=== PATIENT | male | born 1985 | race African-American/Black ===

== ENCOUNTER 2016-06-23 11:50 | Emergency (ER) | payer OTHER ==
[~2016-06-23] VITALS: Ht 167.6 cm; Wt 78.5 kg
--- NOTE | 2016-06-23 12:59 | Emergency Room Report ---
History of Present Illness General Chief Complaint: Puncture Wound Source: Patient Present Illness HPI The patient is a 31-year-old male presenting with right foot pain after he states he stepped onto a metal spike 2 days prior. The patient states that he was climbing a gate when he stepped on the top spike which penetrated the shoe into his foot. Pain is described as a 10 out of 10 dull ache it is worse with walking. Pain does not radiate. Patient denies any numbness or tingling. Patient denies prior injury to this foot. Patient has tried Motrin at home which does not help. Patient unsure of last tetanus shot Allergies: Coded Allergies: No Known Allergies (Unverified , 06/23/16) Patient History Past Medical History: see triage record Pertinent Family History: none Reviewed Nursing Documentation: PMH: Agreed, PSxH: Agreed Nursing Documentation-PMH Past Medical History: No History, Except For Hx Hypertension: Yes Hx Asthma: Yes Review of Systems All Other Systems: negative except mentioned in HPI Physical Exam Vital Signs Date Time Temp Pulse Resp B/P Pulse Ox O2 Delivery O2 Flow Rate FiO2 06/23/16 12:02 98.2 83 18 122/82 98 Room Air Sp02 EP Interpretation: reviewed, normal General Appearance: no apparent distress, alert, GCS 15, non-toxic Head: normocephalic, atraumatic Eyes: bilateral eye PERRL, bilateral eye normal inspection Musculoskeletal: back normal, gait/station normal, normal range of motion, no calf tenderness, tender - TTP over mid plantar surface where puncture wound is of R mid plantar surface Neurologic: alert, oriented x3, responsive, motor strength/tone normal, sensory intact, speech normal Psychiatric: judgement/insight normal, memory normal, mood/affect normal, no suicidal/homicidal ideation Skin: no rash, normal turgor, laceration - <1cm puncture wound of R mid plantar surface Lymphatic: no adenopathy Medical Decision Making PA Attestation Dr. Sams is my supervising physician. Patient management was discussed with my supervising physician Diagnostic Impression: Primary Impression: Puncture wound ER Course The patient is a 31-year-old male presenting with right foot pain after he states he stepped onto a metal spike Ddx considered include but not limited to sprain/strain, fracture, contusion, wound infection, laceration PE: vitals WNL. NAD TTP over mid plantar surface where puncture wound is of R mid plantar surface Wound is less than 1 cm in diameter The patient is given a tetanus shot and tramadol for pain The wound is irrigated with Betadine and normal saline. The patient is discharged home with a prescription for pain medications and antibiotics. Patient continue to keep the wound clean and dry. ER precautions are given Last Vital Signs Date Time Temp Pulse Resp B/P Pulse Ox O2 Delivery O2 Flow Rate FiO2 06/23/16 12:02 98.2 83 18 122/82 98 Room Air Status: improved Disposition: HOME, SELF-CARE Condition: Improved Scripts Ibuprofen* (MOTRIN*) 600 Mg Tablet 600 MG ORAL Q8H Y for For Pain, #30 TAB 0 Refills Prov: JANIS GILL P.A. 06/23/16 Tramadol Hcl* (ULTRAM*) 50 Mg Tablet 50 MG ORAL Q6H Y for For Pain, #10 TAB 0 Refills Prov: JANIS GILL P.A. 06/23/16 Ciprofloxacin Hcl* (CIPROFLOXACIN HCL*) 500 Mg Tablet 500 MG ORAL EVERY 12 HOURS, #20 TAB 0 Refills Prov: JANIS GILL P.A. 06/23/16 Referrals: [facility],REFERRING (PCP) JANIS GILL Jun 23, 2016 12:59
[2016-06-23] MEDS ORDERED: traMADol 50mg tab ORAL ONE (13:00)
[2016-06-23] MEDS ORDERED: TdaP Vaccine 0.5ml Syr IM ONE (13:00)
[2016-06-23] MEDS ORDERED: IBUPROFEN600 MG ORAL (13:11)
[2016-06-23] MEDS ORDERED: CIPROFLOXACIN500 M2 ORAL (13:11)
[2016-06-23] MEDS ORDERED: TRAMADOL HCL50 MG ORAL (13:11)
[2016-06-23 14:02] VITALS: BP 149/95
== END 2016-06-23 14:04 | disposition home or self-care (01) ==
LOC: EMR 12:50
DX: S91.331A Puncture wound without foreign body, right foot, initial encounter (principal); W22.8XXA Striking against or struck by other objects, initial encounter; Y93.39 Activity, other involving climbing, rappelling and jumping off; Y92.9 Unspecified place or not applicable; I10 Essential (primary) hypertension; J45.909 Unspecified asthma, uncomplicated; Z23 Encounter for immunization
CPT/HCPCS: 90471; 90715; 99284

== ENCOUNTER 2016-06-27 13:01 | Emergency (ER) | payer OTHER ==
[~2016-06-27] VITALS: Ht 167.6 cm; Wt 72.6 kg
[~2016-06-27 13:01] MED LIST: CIPROFLOXACIN500 M2 ORAL; IBUPROFEN600 MG ORAL; TRAMADOL HCL50 MG ORAL
[2016-06-27] MEDS ORDERED: TRAMADOL HCL50 MG ORAL (13:39)
--- NOTE | 2016-06-27 13:39 | Emergency Room Report ---
History of Present Illness General Chief Complaint: To Be Triaged Source: Patient Present Illness HPI Patient is a 31-year-old male who presented after having a recent puncture wound to his right foot. The patient was recently seen and evaluated started on antibiotics. Patient was here for were rechecked. Patient reported having continued pain. He had not been vomiting. He denied any fever. Patient stated that the foot had not become more swollen. He denied any discharge from the wound. Allergies: Coded Allergies: No Known Allergies (Unverified , 06/23/16) Patient History Reviewed Nursing Documentation: PMH: Agreed, PSxH: Agreed Nursing Documentation-PMH Hx Hypertension: Yes Hx Asthma: Yes Review of Systems All Other Systems: negative except mentioned in HPI Physical Exam General Appearance: well appearing, no apparent distress, alert, GCS 15 Head: normocephalic, atraumatic ENT: hearing grossly normal, normal voice Neck: full range of motion, supple Respiratory: no respiratory distress, speaking full sentences Musculoskeletal: normal inspection, no calf tenderness, other - healing wound, no infection Neurologic: normal gait Psychiatric: mood/affect normal Skin: no rash Medical Decision Making Diagnostic Impression: Primary Impression: Visit for wound check ER Course Patient presented for wound check.Patient presented for wound check. Differential diagnosis included was not limited to infected wound, nonhealed wound, neuroma, healed wound. Patient's benign exam and does not appear to require any further imaging or laboratory testing at this time. Patient was given prescription for ibuprofen. The patient is advised to follow up with final canoe inspector for recheck in 1 week. Patient is advised to return if any worsening condition or if any changes in status that are concerning. Status: improved Disposition: HOME, SELF-CARE Condition: Stable Leandro Sams Jun 27, 2016 13:39
[2016-06-27] MEDS ORDERED: IBUPROFEN600 MG ORAL (13:40)
[2016-06-27 13:55] VITALS: BP 123/82
== END 2016-06-27 14:00 | disposition home or self-care (01) ==
LOC: EMR 13:39
DX: S91.331D Puncture wound without foreign body, right foot, subsequent encounter (principal); I10 Essential (primary) hypertension; J45.909 Unspecified asthma, uncomplicated; X58.XXXD Exposure to other specified factors, subsequent encounter
CPT/HCPCS: 99281

== ENCOUNTER 2019-06-04 17:32 | Emergency (ER) | payer OTHER ==
[~2019-06-04] VITALS: Ht 170.2 cm; Wt 72.6 kg
--- NOTE | 2019-06-04 18:30 | NUR ---
ED Nurse Note: Patient presents to the ED with flu like symptoms x 3 days. Temp 98.5 F in the ER. Pt also reports a painful cough.
[2019-06-04] MEDS: Albuterol/Ipratropium 3ml neb HHN SCH (18:57)
[2019-06-04 19:02] VITALS: BP 119/80
--- NOTE | 2019-06-04 19:02 | NUR ---
ED Nurse Note: RT at bedside for breathing tx.
--- NOTE | 2019-06-04 19:13 | Emergency Room Report ---
History of Present Illness General Chief Complaint: Flu Like Symptoms Source: Patient, Medical Record Present Illness HPI 34-year-old male with history of heavy tobacco smoke here with complaining of 3 days of pain and posttussive chest pain. Patient denies any phlegm production. Complains of minimal wheezing. Has not taken medication for symptom relief. Denies fever and chills, sore throat, abdominal pain, nausea vomiting, recent travel. Patient reports that he has not come in contact with anybody recently traveling, and does not work with high risk patient population. Denies any drug use and alcohol intake. Vital signs are within normal limits. Patient also complains of generalized body aches x3 days. Patient barely responds to my questions as he says that he feels fatigued and his answers for him. Allergies: Coded Allergies: No Known Allergies (Unverified , 06/23/16) Patient History Past Medical History: see triage record Past Surgical History: none Pertinent Family History: none Social History: Reports: smoking - Heavy tobacco smoker on daily basis Immunizations: UTD Reviewed Nursing Documentation: PMH: Agreed; PSxH: Agreed Nursing Documentation-PMH Hx Hypertension: Yes Hx Asthma: Yes Review of Systems All Other Systems: negative except mentioned in HPI Physical Exam Vital Signs Date Time Temp Pulse Resp B/P (MAP) Pulse Ox O2 Delivery O2 Flow Rate FiO2 06/04/19 18:22 98.4 101 18 119/80 (93) 95 Room Air Sp02 EP Interpretation: reviewed, normal General Appearance: no apparent distress, alert, GCS 15, non-toxic Head: normocephalic, atraumatic Eyes: bilateral eye normal inspection, bilateral eye PERRL ENT: hearing grossly normal, normal pharynx, no angioedema, normal voice Neck: full range of motion, supple, thyroid normal, no meningismus, no bony tend, supple/symm/no masses Respiratory: chest non-tender, no rhonchi, no respiratory distress, no retraction, no accessory muscle use, speaking full sentences, wheezing - Diffuse wheezing noted Cardiovascular #1: regular rate, rhythm, no edema, no murmur Cardiovascular #2: 2+ carotid (R), 2+ carotid (L), 2+ radial (R), 2+ radial (L) Gastrointestinal: normal bowel sounds, non tender, soft, non-distended, no guarding, no rebound Rectal: deferred Genitourinary: no CVA tenderness Musculoskeletal: back normal, no calf tenderness Neurologic: alert, motor strength/tone normal, oriented x3, sensory intact, responsive, speech normal Psychiatric: judgement/insight normal, memory normal, mood/affect normal, no suicidal/homicidal ideation Skin: no rash, palpation normal, normal color, warm/dry Lymphatic: no adenopathy Medical Decision Making PA Attestation Diagnosis and treatment plans were reviewed and discussed with my supervising physician Dr. Norton Diagnostic Impression: Primary Impression: Pneumonitis ER Course 34-year-old male with history of heavy tobacco smoke here with complaining of 3 days of pain and posttussive chest pain. Patient denies any phlegm production. Complains of minimal wheezing. Has not taken medication for symptom relief. Denies fever and chills, sore throat, abdominal pain, nausea vomiting, recent travel. Patient reports that he has not come in contact with anybody recently traveling, and does not work with high risk patient population. Denies any drug use and alcohol intake. Vital signs are within normal limits. Patient also complains of generalized body aches x3 days. Patient barely responds to my questions as he says that he feels fatigued and his answers for him. Ddx considered but are not limited to: bronchitis, PNA, URI viral, bacterial bronchitis, pneumonitis Vital signs: are WNL, pt. is afebrile H&PE are most consistent with: Pneumonitis ORDERS: Chest x-ray, albuterol inhaler, azithromycin, Phenergan with codeine cough, prednisone ED INTERVENTIONS: Prednisone, 3 treatments of albuterol ipratropium breathing treatment DISCHARGE: At this time pt. is stable for d/c to home. Will provide printed patient care instructions, and any necessary prescriptions. Care plan and follow up instructions have been discussed with the patient prior to discharge. Advised patient to return to emergency room worsening symptoms. Patient is not a high risk raises concern. However patient answers no to all the questions in regards to whether he has been traveling or been in contact with patients who have been traveling or working with a high risk population areas. Follow-up primary care provider, increase oral hydration Chest X-Ray Diagnostic Results Chest X-Ray Diagnostic Results : Chest X-Ray Ordered: Yes # of Views/Limited/Complete: 1 View Indication: Shortness of Breath EP Interpretation: Yes PA Xray: Interpretation reviewed, by supervising MD, and agrees with findings. Interpretation: no consolidation, no effusion, no pneumothorax, no acute cardiopulmonary disease Impression: No acute disease Electronically Signed by: Matt Chew PA-C Last Vital Signs Date Time Temp Pulse Resp B/P (MAP) Pulse Ox O2 Delivery O2 Flow Rate FiO2 06/04/19 19:03 104 18 94 06/04/19 18:22 98.4 119/80 (93) Room Air Status: improved Disposition: HOME, SELF-CARE Condition: Stable Scripts Prednisone* (PREDNISONE*) 20 Mg Tablet 40 MG ORAL DAILY for 5 Days, #10 TAB Prov: Matt Holguin 06/04/19 Albuterol Sulfate (VENTOLIN HFA) 18 Gm Hfa.aer.ad 2 PUFFS INH EVERY 6 HOURS, #18 GM 0 Refills Prov: Matt Holguin 06/04/19 Codeine/Promethazine Hcl* (PROMETHAZINE-CODEINE SYRUP*) 118 Ml Syrup 5 ML ORAL Q6H PRN for For Cough for 120 Days, ML 0 Refills Prov: Matt Holguin 06/04/19 Azithromycin* (ZITHROMAX*) 250 Mg Tablet 250 MG ORAL DAILY, #6 TAB 0 Refills Take two tables once daily for 1 day, then one tablet once daily for 4 days. Prov: Matt Holguin 06/04/19 Referrals: [facility],REFERR[facility] (PCP) Patient Instructions: Pneumonitis Additional Instructions: Avoid smoking, take medication as directed, follow-up with your primary care provider, if worsening symptoms return to the emergency room Matt Holguin Jun 04, 2019 19:13
[2019-06-04] MEDS ORDERED: ZITHROMAX250 MG ORAL (19:20)
[2019-06-04] MEDS ORDERED: PROMETHAZINE-C118 M1 ORAL (19:20)
[2019-06-04] MEDS ORDERED: PREDNISONE20 MG ORAL (19:20)
[2019-06-04] MEDS ORDERED: VENTOLIN HFA18 GM INH (19:20)
--- NOTE | 2019-06-04 19:40 | Diagnostic Imaging Report ---
EXAM: XR Chest, 1 View CLINICAL HISTORY: COUGH TECHNIQUE: Frontal view of the chest. COMPARISON: No relevant prior studies available. FINDINGS: Lungs: Unremarkable. No consolidation. Pleural space: Unremarkable. No pneumothorax. Heart: Unremarkable. No cardiomegaly. Mediastinum: Unremarkable. Bones/joints: Unremarkable. IMPRESSION: Normal chest x-ray.
[2019-06-04 19:47] VITALS: BP 121/78
--- NOTE | 2019-06-04 19:47 | NUR ---
ED Nurse Note: Pt cleared by ERMD for discharge. DC instructions/prescription was given and explained to pt and verbalized understanding of teachings. All medical deviecs such as ID band removed. Pt is AAO x4, ambulatory and left with all personal belongings. Accompanied by family member.
== END 2019-06-04 19:47 | disposition home or self-care (01) ==
LOC: EMR 18:10
DX: J18.9 Pneumonia, unspecified organism (principal); J45.909 Unspecified asthma, uncomplicated; I10 Essential (primary) hypertension
CPT/HCPCS: 71045; J7512; Z7502; 99283; J7620